=== PATIENT | male | born 1950 | race Caucasian/White ===

== ENCOUNTER 2016-08-17 11:06 | Emergency (ER) | payer MEDICARE, OTHER ==
[~2016-08-17] VITALS: Ht 172.7 cm; Wt 65.9 kg
[~2016-08-17 11:06] MED LIST: ASPI81CH CHEW; LORA1TAB12 PO; METO25TA6 PO; PERC10TA27 PO; PRIL20CA9 PO; REST0.05 EACH EYE; ROSU1TAB8 PO; SYSTSOL9 EACH EYE
[2016-08-17 11:18] VITALS: BP 118/76; PULSE 89; RESP 16; TEMP 98.1; O2SAT 94
--- NOTE | 2016-08-17 11:40 | PD ---
HPI Chief Complaint: Musculoskeletal Complaint Time Seen by Provider: 11:28 Travel History International Travel<30 days: No Contact w/Intl Traveler<30days: No Traveled to known affect area: No History of Present Illness HPI 66-year-old male presents emergency department for evaluation of left knee pain and swelling for 7 days. Patient reports he's been working on his knees fixing a trailer which caused the left knee to swell. He reports similar symptoms in the past requiring arthrocentesis of the knee by orthopedics. Modifying factors : Flexion of the knee and kneeling. Alleviating factors: Rest. Severity 7 out of 10. He denies fevers or chills. Patient reports he was seen in urgent care clinic 3 days ago where the provider attempted to drain the knee without success. Patient reports no fluid was drained from the knee. He has been taking his chronic pain medication without relief. PFSH Past Medical History Hx Anticoagulant Therapy: Yes (asa 81mg) ADD: Yes Arthritis: Yes Asthma: Yes Autoimmune Disease: No Blood Disorders: No Anxiety: Yes Cancer: Yes (skin cancer, PROSTATE CANCER) Cardiac Catheterization: Yes Cardiovascular Problems: Yes (htn on meds, x 2 stents) High Cholesterol: Yes Chemotherapy: No Chest Pain: Yes Cerebrovascular Accident: No Coronary Artery Disease: Yes Diabetes: No Diminished Hearing: No Gastrointestinal Disorders: No GERD: Yes Genitourinary: No Headaches: Yes Hepatitis: Yes (A) Hiatal Hernia: No Hypertension: Yes Medical other: Yes (GERD, ULCER HX) Musculoskeletal: Yes (degenerative disc) Neurologic: No Respiratory: Yes (copd) Immunizations Current: Yes Myocardial Infarction: Yes Sickle Cell Disease: No Sleep Apnea: Yes Thyroid Disease: No Ulcer: Yes Tetanus Vaccination: < 5 Years PNEUMOCCOCAL Vaccine (Year): 2 Past Surgical History Abdominal Surgery: No Cardiac Surgery: Yes (STENT X 2) Coronary Stent: Yes (x2) Ear Surgery: No Endocrine Surgery: No Eye Surgery: Yes (CATARACT REPAIR AUGUST 2011) Genitourinary Surgery: Yes (RIGHT KIDNEY REPAIR (POST TRAUMA)) Gynecologic Surgery: No Hysterectomy: No Neurologic Surgery: No Oral Surgery: No Pacemaker: No Thoracic Surgery: No Other Surgery: Yes (PROSTATE CA REMOVAL) Social History Alcohol Use: Yes (2-3 beers OR 2 MIXED DRINKS DAILY; 2 SCOTCH DRINKS 02/21/15) Tobacco Use: Yes (1 PPD) Substance Use: No Allergies-Medications (Allergen,Severity, Reaction): Coded Allergies: No Known Allergies (Verified , 08/17/16) Reported Meds & Prescriptions Reported Meds & Active Scripts Active Reported Metoprolol Succinate ER 24 HR (Metoprolol Succinate) 25 Mg Tab 25 Mg PO DAILY Rosuvastatin (Rosuvastatin Calcium) 20 Mg Tab 20 Mg PO DAILY Review of Systems Except as stated in HPI: all other systems reviewed are Neg Physical Exam Narrative GENERAL: Alert, well-appearing male no acute distress SKIN: Focused skin assessment warm/dry. HEAD: Atraumatic. Normocephalic. EYES: Pupils equal and round. No scleral icterus. No injection or drainage. ENT: No nasal bleeding or discharge. Mucous membranes pink and moist. NECK: Trachea midline. No JVD. CARDIOVASCULAR: Regular rate and rhythm. No murmur appreciated. RESPIRATORY: No accessory muscle use. Clear to auscultation. Breath sounds equal bilaterally. GASTROINTESTINAL: Abdomen soft, non-tender, nondistended. Hepatic and splenic margins not palpable. MUSCULOSKELETAL: No obvious deformities. No clubbing. No cyanosis. No edema. Left knee: Moderate swelling to the anterior aspect. Small joint effusion. No erythema or warmth to indicate infection. No lymphangitis/cellulitis/wound. NEUROLOGICAL: Awake and alert. No obvious cranial nerve deficits. Motor grossly within normal limits. Normal speech. PSYCHIATRIC: Appropriate mood and affect; insight and judgment normal. Data Data Last Documented VS Vital Signs Date Time Temp Pulse Resp B/P Pulse Ox O2 Delivery O2 Flow Rate FiO2 08/17/16 11:18 98.1 89 16 118/76 94 Orders Knee, Complete (4vws) (08/17/16 ) Ketorolac Inj (Toradol Inj) (08/17/16 12:30) Splint Or Brace Apply/Monitor (08/17/16 12:29) [facility] Medical Decision Making Medical Screen Exam Complete: Yes Emergency Medical Condition: Yes Differential Diagnosis Left knee pain: Joint effusion, meniscal injury, arthritis, less likely septic joint Narrative Course 66-year-old male presents emergency department for evaluation of left knee pain and swelling 7 days. He reports he has been working on his knees fixing an RV which caused the pain and swelling the left knee. He has had previous episodes of left knee effusion requiring arthrocentesis. Patient has an appointment with orthopedic. A joint effusion is mild to moderate. Clinically there is no concern of septic joint. X-ray ordered. Diagnosis Primary Impression: Left knee pain Qualified Code: M25.562 - Left knee pain, unspecified chronicity Additional Instructions: With the Luis Alfredo wrap as discussed. Avoid kneeling and bending of the left knee. Take the Motrin as prescribed. Make an appointment for follow-up with or without. Scripts Ibuprofen 800 Mg [id number] Mg PO Q8H PRN (Pain/Inflammation) #30 TAB Prov:Dolly Corrigan 08/17/16 Disposition: 01 DISCHARGE HOME Condition: Stable Dolly Corrigan Aug 17, 2016 11:40
--- NOTE | 2016-08-17 12:18 | RADHPO ---
EXAM DATE/TIME: 08/17/2016 11:39 [facility] COMPARISON: No previous studies available for comparison. INDICATIONS : Complains of pain and swelling of left knee. MEDICAL HISTORY : None. SURGICAL HISTORY : None. ENCOUNTER: Initial ACUITY: 1 week PAIN SCORE: 7/10 LOCATION: Left knee FINDINGS: There is a small suprapatellar knee joint effusion. Spurring is noted at the insertion of the sasha ceps tendon on the patella. Chondrocalcinosis is noted within the lateral portion of the femoral tib ial joint. There is no acute fracture or dislocation. CONCLUSION: 1. Chondrocalcinosis involving lateral portion of the femoral tibial joint. 2. Small suprapatellar knee joint effusion. 3. Spurring at the insertion of the quadriceps tendon on the patella. 4. No acute fracture or dislocation. Boo Law MD on August 17, 2016 at 12:06 Board Certified Radiologist. This report was verified electronically.
[2016-08-17] MEDS ORDERED: KETOROLAC TROMETHAMINE 60 MG/2 ML (IM) VIAL IM ONE (12:30)
[2016-08-17] MEDS ORDERED: IBUP800T23 PO (12:48)
== END 2016-08-17 12:53 | disposition home or self-care (01) ==
LOC: PHEFT 11:06
DX: M25.562 Pain in left knee (principal); E78.00 Pure hypercholesterolemia, unspecified; I10 Essential (primary) hypertension; I25.10 Atherosclerotic heart disease of native coronary artery without angina pectoris; I25.2 Old myocardial infarction; Z85.46 Personal history of malignant neoplasm of prostate; Z95.5 Presence of coronary angioplasty implant and graft; Z85.828 Personal history of other malignant neoplasm of skin; J44.9 Chronic obstructive pulmonary disease, unspecified
CPT/HCPCS: 73564; 96372; 99284; J1885

== ENCOUNTER 2016-12-10 12:27 | Emergency (ER) | payer MEDICARE, OTHER ==
[~2016-12-10] VITALS: Ht 172.7 cm; Wt 63.0 kg
[~2016-12-10 12:27] MED LIST changes: -ASPI81CH CHEW; +IBUP800T23 PO; -LORA1TAB12 PO; -PERC10TA27 PO; -PRIL20CA9 PO; -REST0.05 EACH EYE; -SYSTSOL9 EACH EYE
[2016-12-10 12:36] VITALS: BP 152/67; PULSE 66; RESP 16; TEMP 98.2; O2SAT 97
[2016-12-10] MEDS ORDERED: CALA237L TOPICAL (13:23)
[2016-12-10] MEDS ORDERED: DIPH25TA2 PO (13:23)
--- NOTE | 2016-12-10 13:24 | PD ---
HPI . Bug bites on left arm Chief Complaint: Skin Problem Time Seen by Provider: 13:05 Travel History International Travel<30 days: No Contact w/Intl Traveler<30days: No Traveled to known affect area: No History of Present Illness HPI 66-year-old male patient presents emergency department for evaluation of insect bites to left arm. Patient states they're itchy but he is trying not to scratch them. Patient denies any major medical history except for back pain. Patient denies any fevers, chills, malaise. There are multiple insect bites from the left wrist extending upward to the medial aspect of the humerus. Is no erythema, edema or warmth. The patient denies any other physiological complaint this time. PFSH Past Medical History Hx Anticoagulant Therapy: Yes (asa 81mg) ADD: Yes Arthritis: Yes Asthma: Yes Autoimmune Disease: No Blood Disorders: No Anxiety: Yes Cancer: Yes (skin cancer, PROSTATE CANCER) Cardiac Catheterization: Yes Cardiovascular Problems: Yes (htn on meds, x 2 stents) High Cholesterol: Yes Chemotherapy: No Chest Pain: Yes Cerebrovascular Accident: No Coronary Artery Disease: Yes Diabetes: No Diminished Hearing: No Gastrointestinal Disorders: No GERD: Yes Genitourinary: No Headaches: Yes Hepatitis: Yes (A) Hiatal Hernia: No Hypertension: Yes Medical other: Yes (GERD, ULCER HX) Musculoskeletal: Yes (degenerative disc) Neurologic: No Respiratory: Yes (copd) Immunizations Current: Yes Myocardial Infarction: Yes Sickle Cell Disease: No Sleep Apnea: Yes Thyroid Disease: No Ulcer: Yes Tetanus Vaccination: < 5 Years PNEUMOCCOCAL Vaccine (Year): 2 Past Surgical History Abdominal Surgery: No Cardiac Surgery: Yes (STENT X 2) Coronary Stent: Yes (x2) Ear Surgery: No Endocrine Surgery: No Eye Surgery: Yes (CATARACT REPAIR AUGUST 2011) Genitourinary Surgery: Yes (RIGHT KIDNEY REPAIR (POST TRAUMA)) Gynecologic Surgery: No Hysterectomy: No Neurologic Surgery: No Oral Surgery: No Pacemaker: No Thoracic Surgery: No Other Surgery: Yes (PROSTATE CA REMOVAL) Social History Alcohol Use: Yes (2-3 beers OR 2 MIXED DRINKS DAILY; 2 SCOTCH DRINKS 02/21/15) Tobacco Use: Yes (1 PPD) Substance Use: No Allergies-Medications (Allergen,Severity, Reaction): Coded Allergies: No Known Allergies (Verified , 12/10/16) Reported Meds & Prescriptions Reported Meds & Active Scripts Active Ibuprofen 800 Mg Tab 800 Mg PO Q8H PRN Reported Metoprolol Succinate ER 24 HR (Metoprolol Succinate) 25 Mg Tab 25 Mg PO DAILY Rosuvastatin (Rosuvastatin Calcium) 20 Mg Tab 20 Mg PO DAILY Review of Systems Except as stated in HPI: all other systems reviewed are Neg Physical Exam Narrative GENERAL: Well-nourished, well-developed 66-year-old male patient in no acute distress. SKIN: Multiple red lesions scattered on left arm ranging from this wrist to the medial aspect of the humerus. No erythema, edema or warmth noted. HEAD: Normocephalic. Atraumatic EYES: No scleral icterus. No injection or drainage. NECK: Supple, trachea midline. No JVD or lymphadenopathy. CARDIOVASCULAR: Regular rate and rhythm without murmurs, gallops, or rubs. RESPIRATORY: Breath sounds equal bilaterally. No accessory muscle use. GASTROINTESTINAL: Abdomen soft, non-tender, nondistended. MUSCULOSKELETAL: No cyanosis, or edema. BACK: Nontender without obvious deformity. No CVA tenderness. 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 Patient denies any fevers, chills, malaise. Denies any major medical history except for lower back pain that he sees a pain management physician for.Based on patient's symptoms, clinical presentation, vital sign review and physical exam it is not necessary to admit the patient to the hospital or keep the patient in the emergency department for further evaluation. Patient will be given a prescription for Benadryl and calamine and discharged home. Diagnosis Primary Impression: Bug bites Qualified Codes: W57.XXXA - Bitten or stung by nonvenomous insect and other nonvenomous arthropods, initial encounter Referrals: Primary Care Physician Patient Instructions: General Instructions, Insect Bite or Sting (ED) Additional Instructions: Please return to emergency department with any signs or symptoms of infection. Including redness, warmth, swelling and fevers. Follow up with your primary care provider. Take medications as prescribed. Keep bites clean and dry. Do not scratch bug bites. Med/Other Pt SpecificInfo: Prescription(s) given Scripts Calamine (Calamine) 237 Ml Lotion 1 APPLIC TOPICAL BID Y for ITCHING, #1 BOTTLE Prov: Tanika Oliver 12/10/16 Diphenhydramine (Diphenhydramine) 25 Mg Tab 50 MG PO Q6H Y for ITCHING, #10 TAB 0 Refills Prov: Tanika Oliver 12/10/16 Disposition: 01 DISCHARGE HOME Condition: Stable Tanika Oliver Dec 10, 2016 13:24
== END 2016-12-10 13:34 | disposition home or self-care (01) ==
LOC: PHEFT 12:27
DX: S40.862A Insect bite (nonvenomous) of left upper arm, initial encounter (principal); I25.2 Old myocardial infarction; I10 Essential (primary) hypertension; K21.9 Gastro-esophageal reflux disease without esophagitis; F17.200 Nicotine dependence, unspecified, uncomplicated; W57.XXXA Bitten or stung by nonvenomous insect and other nonvenomous arthropods, initial encounter
CPT/HCPCS: 99282

== ENCOUNTER 2017-03-28 14:02 | Emergency (ER) | payer MEDICARE, OTHER ==
[~2017-03-28] VITALS: Ht 172.7 cm; Wt 65.3 kg
[~2017-03-28 14:02] MED LIST changes: +ADDE10 PO; +ALLO100T PO; +ASPI81TA23 PO; +IBUP1TAB7 PO; -IBUP800T23 PO; +LORA1TAB12 PO; +METO1TAB42 PO; -METO25TA6 PO; +OXYC1TAB36 PO; +PRIL20TA2 PO
[2017-03-28 14:07] VITALS: BP 158/70; PULSE 92; RESP 16; TEMP 98; O2SAT 93
--- NOTE | 2017-03-28 15:09 | PD ---
HPI Chief Complaint: Back/ Neck Pain or Injury Time Seen by Provider: 15:00 Travel History International Travel<30 days: No Contact w/Intl Traveler<30days: No Traveled to known affect area: No History of Present Illness HPI This is a 66-year-old male here with chronic sciatica pain worse over the last several days. He was seen by his pain management doctor and received injections into the back. He reports he has continued pain. He attempted to make a follow-up appointment with him with instructed to come to the ER. He denies fever, chills, saddle anesthesia, incontinence, paresthesia or weakness of the extremity. Severity is moderate. Pain made worse with walking. Unrelieved by his Percocet 10. PFSH Past Medical History Hx Anticoagulant Therapy: Yes (asa 81mg) ADD: Yes Arthritis: Yes Asthma: Yes Autoimmune Disease: No Blood Disorders: No Anxiety: Yes Cancer: Yes (skin cancer, PROSTATE CANCER) Cardiac Catheterization: Yes Cardiovascular Problems: Yes (htn on meds, x 2 stents) High Cholesterol: Yes Chemotherapy: No Chest Pain: Yes Cerebrovascular Accident: No Coronary Artery Disease: Yes Diabetes: No Diminished Hearing: No Gastrointestinal Disorders: No GERD: Yes Genitourinary: No Headaches: Yes Hepatitis: Yes (A) Hiatal Hernia: No Hypertension: Yes Medical other: Yes (GERD, ULCER HX) Musculoskeletal: Yes (degenerative disc) Neurologic: No Respiratory: Yes (copd) Immunizations Current: Yes Myocardial Infarction: Yes Sickle Cell Disease: No Sleep Apnea: Yes Thyroid Disease: No Ulcer: Yes PNEUMOCCOCAL Vaccine (Year): 2 Past Surgical History Abdominal Surgery: No Cardiac Surgery: Yes (STENT X 2) Coronary Stent: Yes (x2) Ear Surgery: No Endocrine Surgery: No Eye Surgery: Yes (CATARACT REPAIR AUGUST 2011) Genitourinary Surgery: Yes (RIGHT KIDNEY REPAIR (POST TRAUMA)) Gynecologic Surgery: No Hysterectomy: No Neurologic Surgery: No Oral Surgery: No Pacemaker: No Thoracic Surgery: No Other Surgery: Yes (PROSTATE CA REMOVAL) Social History Alcohol Use: Yes (2-3 beers OR 2 MIXED DRINKS DAILY; 2 SCOTCH DRINKS 02/21/15) Tobacco Use: Yes (1 PPD) Substance Use: No Allergies-Medications (Allergen,Severity, Reaction): Coded Allergies: No Known Allergies (Verified Allergy, Unknown, 03/28/17) Reported Meds & Prescriptions Reported Meds & Active Scripts Active Ibuprofen 800 Mg Tab 800 Mg PO Q8H PRN Reported Adderall (Amphetamine-Dextroamphetamine) 10 Mg Tab 10 Mg PO DAILY Avoid late evening doses. Space doses at least 4 to 6 hours if more than once/day dosing. Oxycodone-Acetaminophen 10-325 mg Tab 1 Tab PO Q6HR Lorazepam 1 Mg Tab 1 Mg PO DAILY PRN Prilosec (Omeprazole Magnesium) 20 Mg Tab 1 Tab PO DAILY Aspirin EC (Aspirin) 81 Mg Tabdr 81 Mg PO DAILY Allopurinol 100 Mg Tab 100 Mg PO DAILY Metoprolol Succinate ER 24 HR (Metoprolol Succinate) 25 Mg Tab 25 Mg PO DAILY Rosuvastatin (Rosuvastatin Calcium) 20 Mg Tab 20 Mg PO DAILY Review of Systems Except as stated in HPI: all other systems reviewed are Neg General / Constitutional: No: Fever Physical Exam Narrative GENERAL: Alert and well-appearing 58-year-old male. Patient is ambulatory without difficulty. SKIN: Warm and dry. HEAD: Normocephalic. EYES: No injection or drainage. NECK: No JVD or lymphadenopathy. CARDIOVASCULAR: Regular rate and rhythm without murmurs, gallops, or rubs. RESPIRATORY: Breath sounds equal bilaterally. No accessory muscle use. GASTROINTESTINAL: Abdomen soft, non-tender, nondistended. MUSCULOSKELETAL: No cyanosis, or edema. 5 out of 5 strength in upper and lower cavities. 2+ patellar and Achilles DTRs. Patient is able dorsiflex and plantar flex the great toes. BACK: Tenderness over the right sacroiliac joint. Positive straight leg raise. without obvious deformity. No CVA tenderness. Data Data Last Documented VS Vital Signs Date Time Temp Pulse Resp B/P (MAP) Pulse Ox O2 Delivery O2 Flow Rate FiO2 03/28/17 14:07 98.0 92 16 158/70 (99) 93 Orders Orders Ketorolac Inj (Toradol Inj) (03/28/17 15:15) MDM Medical Decision Making Medical Screen Exam Complete: Yes Emergency Medical Condition: Yes Differential Diagnosis Sciatica, lumbar strain, acute on chronic back pain Narrative Course 4-year-old male here with acute on chronic low back pain. He has a history of sciatica. He reports this is similar. He is well-appearing. He has a normal neurologic exam. He'll be given a shot of Toradol here. Diagnosis Primary Impression: Sciatica Qualified Codes: M54.31 - Sciatica, right side Referrals: Pain Management Additional Instructions: Take pain medication as described. Disposition: 01 DISCHARGE HOME Condition: Stable Dolly Corrigan Mar 28, 2017 15:09
[2017-03-28] MEDS ORDERED: KETOROLAC TROMETHAMINE 60 MG/2 ML (IM) VIAL IM ONE (15:15)
== END 2017-03-28 15:25 | disposition home or self-care (01) ==
LOC: PHED 14:02 → PHEFT 15:25
DX: M54.31 Sciatica, right side (principal); I10 Essential (primary) hypertension; I25.10 Atherosclerotic heart disease of native coronary artery without angina pectoris; K21.9 Gastro-esophageal reflux disease without esophagitis; E78.00 Pure hypercholesterolemia, unspecified; G47.30 Sleep apnea, unspecified; I25.2 Old myocardial infarction; F17.200 Nicotine dependence, unspecified, uncomplicated; Z87.39 Personal history of other diseases of the musculoskeletal system and connective tissue; Z87.09 Personal history of other diseases of the respiratory system; Z85.828 Personal history of other malignant neoplasm of skin; Z85.46 Personal history of malignant neoplasm of prostate
CPT/HCPCS: 96372; 99284; J1885

== ENCOUNTER 2017-07-16 08:11 | Emergency (ER) | payer MEDICARE, OTHER ==
[~2017-07-16 08:11] MED LIST changes: +KRIL1CAP24 PO; +TIZA4CAP3 PO
[2017-07-16 08:13] VITALS: BP 148/77; PULSE 64; RESP 16; TEMP 97.6; O2SAT 97
[2017-07-16] MEDS ORDERED: ASPI81TA23 PO (08:50)
[2017-07-16] MEDS ORDERED: PRAS10TA PO (08:50)
[2017-07-16] MEDS ORDERED: LORA1TAB12 PO (08:50)
--- NOTE | 2017-07-16 09:25 | PD ---
HPI . Bleeding Chief Complaint: Bleeding Time Seen by Provider: 08:29 Travel History International Travel<30 days: No Contact w/Intl Traveler<30days: No Traveled to known affect area: No History of Present Illness HPI Patient presents with a chief complaint of bleeding from his right lower abdominal wall. Onset was yesterday. The bleeding is better but has persisted. He states that it started out as an itch which he scratched. It then started bleeding and will not stop. He is on prasugrel which is an antiplatelet drug. His symptoms are mild and are improving. PFSH Past Medical History Hx Anticoagulant Therapy: Yes (Prasugrel) ADD: Yes Arthritis: Yes Asthma: Yes Autoimmune Disease: No Blood Disorders: No Anxiety: Yes Depression: Yes Cancer: Yes (skin cancer, PROSTATE CANCER) Cardiac Catheterization: Yes Cardiovascular Problems: Yes (stents) High Cholesterol: Yes Chemotherapy: No Chest Pain: Yes COPD: Yes Cerebrovascular Accident: No Coronary Artery Disease: Yes Diabetes: No Diminished Hearing: No Gastrointestinal Disorders: No GERD: Yes Genitourinary: No Headaches: Yes Hepatitis: Yes (A) Hiatal Hernia: No Hypertension: Yes Medical other: Yes (GERD, ULCER HX) Musculoskeletal: Yes (degenerative disc) Neurologic: No Respiratory: Yes (copd) Immunizations Current: Yes Myocardial Infarction: No (denies) Sickle Cell Disease: No Sleep Apnea: Yes Thyroid Disease: No Ulcer: Yes Tetanus Vaccination: Unknown Influenza Vaccination: No PNEUMOCCOCAL Vaccine (Year): 2 Past Surgical History Abdominal Surgery: No Cardiac Surgery: Yes (STENT X3) Coronary Stent: Yes (x2, recent 04/2017 another stent placed total of 3 stents) Ear Surgery: No Endocrine Surgery: No Eye Surgery: Yes (CATARACT REPAIR AUGUST 2011) Genitourinary Surgery: Yes (RIGHT KIDNEY REPAIR (POST TRAUMA)) Gynecologic Surgery: No Hysterectomy: No Neurologic Surgery: No Oral Surgery: No Pacemaker: No Thoracic Surgery: No Other Surgery: Yes (PROSTATE CA -states procedure to scrape lining) Social History Alcohol Use: Yes (2-3 beers OR 2 MIXED DRINKS DAILY) Tobacco Use: Yes (1 PPD) Substance Use: No Allergies-Medications (Allergen,Severity, Reaction): Coded Allergies: No Known Allergies (Verified Allergy, Unknown, 04/23/17) Reported Meds & Prescriptions Reported Meds & Active Scripts Active Reported Effient (Prasugrel) 10 Mg Tab 10 Mg PO DAILY Aspirin EC (Aspirin) 81 Mg Tabdr 81 Mg PO DAILY Lorazepam 1 Mg Tab 1 Mg PO BID PRN Krill Oil 350 mg Softgel (Krill/[place]-3/Dha/Epa/Lipids) 350 Mg-90 Mg-24 Mg-50 Mg -130 Mg Capsule 1 Cap PO BID Adderall (Amphetamine-Dextroamphetamine) 10 Mg Tab 10 Mg PO BID Avoid late evening doses. Space doses at least 4 to 6 hours if more than once/day dosing. Oxycodone-Acetaminophen 10-325 mg Tab 1 Tab PO Q6HR Prilosec (Omeprazole Magnesium) 20 Mg Tab 1 Tab PO DAILY Aspirin EC (Aspirin) 81 Mg Tabdr 81 Mg PO DAILY Metoprolol Succinate ER 24 HR (Metoprolol Succinate) 25 Mg Tab 25 Mg PO DAILY Rosuvastatin (Rosuvastatin Calcium) 20 Mg Tab 20 Mg PO DAILY Review of Systems Except as stated in HPI: all other systems reviewed are Neg Physical Exam Narrative GENERAL: Awake and alert and in no acute distress. SKIN: Warm and dry. Punctate area on the right lower abdomen which is bleeding. It is not bleeding profusely. HEAD: Normocephalic/atraumatic. EYES: Pupils are equal. Extraocular movements are intact. NECK: Normal range of motion. CARDIOVASCULAR: Regular rate and rhythm. RESPIRATORY: Nonlabored respirations. MUSCULOSKELETAL: Atraumatic. NEUROLOGICAL: Nonfocal. PSYCHIATRIC: Appropriate mood and affect. Data Data Last Documented VS Vital Signs Date Time Temp Pulse Resp B/P (MAP) Pulse Ox O2 Delivery O2 Flow Rate FiO2 07/16/17 08:40 16 97 Room Air 07/16/17 08:13 97.6 64 148/77 (100) Orders Orders Wound Care (07/16/17 08:34) [facility] Medical Decision Making Medical Screen Exam Complete: Yes Emergency Medical Condition: Yes Differential Diagnosis Differential diagnosis of bleeding includes but is not limited to coagulopathy, antiplatelet therapy, alcohol induced platelet dysfunction Narrative Course This patient presents with a tiny area of bleeding on his right lower abdominal wall. He was treated here with stat seal and a pressure dressing. He has been instructed to leave that on until tonight. Diagnosis Primary Impression: Bleeding Patient Instructions: General Instructions Departure Forms: Tests/Procedures Disposition: 01 DISCHARGE HOME Condition: Stable Rebekah Bloom MD July 16, 2017 09:25
[2017-07-16 09:47] VITALS: BP 115/66
== END 2017-07-16 09:49 | disposition home or self-care (01) ==
LOC: PHED 08:11
DX: S31.109A Unspecified open wound of abdominal wall, unspecified quadrant without penetration into peritoneal cavity, initial encounter (principal); R58 Hemorrhage, not elsewhere classified; F32.9 Major depressive disorder, single episode, unspecified; F41.9 Anxiety disorder, unspecified; E78.00 Pure hypercholesterolemia, unspecified; I10 Essential (primary) hypertension; I25.10 Atherosclerotic heart disease of native coronary artery without angina pectoris; J44.9 Chronic obstructive pulmonary disease, unspecified; K21.9 Gastro-esophageal reflux disease without esophagitis; F17.200 Nicotine dependence, unspecified, uncomplicated; X58.XXXA Exposure to other specified factors, initial encounter
CPT/HCPCS: 12001